=== PATIENT | female | born 1950 | race African-American/Black ===

== ENCOUNTER 2018-09-29 17:07 | Emergency (ER) | payer MEDICARE, OTHER ==
[~2018-09-29] VITALS: Ht 157.5 cm; Wt 63.5 kg
[2018-09-29 17:51] VITALS: BP 159/78
--- NOTE | 2018-09-29 17:52 | NUR ---
ED Nurse Note:pt. came with bilateral feet swelling and ALOC, seen by ER
--- NOTE | 2018-09-29 17:54 | Emergency Room Report ---
History of Present Illness General Chief Complaint: Pain Source: Patient Present Illness HPI Patient presents with 2 problems. One is bilateral foot pain and leg swelling. She has a history of a DVT several years ago. She's not taking blood thinners at this time. She has been able to ambulate. She's been complaining about pain however. She told the RN that she has 1/10 pain, aching. The second problem is altered mentation. She has a long history of schizophrenia. She has been stable on her medications for many years. These have not changed recently. She's been having hallucinations at night and been wandering and has been inappropriate. Sister denies suicidal or homicidal ideation at this time. The urine has a foul odor. There's been no nausea, vomiting, diarrhea. There' s been no head trauma. Patient unable to answer most questions. H/O HTN. Allergies: Coded Allergies: No Known Allergies (Unverified , 09/29/18) Patient History Limited by: medical condition Past Medical History: see triage record Social History: Denies: smoking Social History Narrative cared for by sister Last Menstrual Period: N/A Reviewed Nursing Documentation: PMH: Agreed; PSxH: Agreed Nursing Documentation-PMH Hx Hypertension: Yes History Of Psychiatric Problem: Yes - Schizophrenia, Depression Hx Neurological Problems: Yes Review of Systems All Other Systems: limited Physical Exam Vital Signs Date Time Temp Pulse Resp B/P (MAP) Pulse Ox O2 Delivery O2 Flow Rate FiO2 09/29/18 17:27 97.5 104 18 159/78 96 Room Air Sp02 EP Interpretation: reviewed, normal General Appearance: no apparent distress, Chronically Ill Head: normocephalic Eyes: bilateral eye normal inspection, bilateral eye PERRL, bilateral eye EOMI ENT: moist mucus membranes Neck: supple, no bony tend Respiratory: lungs clear, normal breath sounds Cardiovascular #1: regular rate, rhythm, edema Cardiovascular #2: 2+ radial (R), 2+ dorsalis pedis (R), 2+ dorsalis pedis (L) Gastrointestinal: no mass, scaphoid Genitourinary: no CVA tenderness Musculoskeletal: normal range of motion, no calf tenderness, swelling - ankles , tender - bilateral ankles/feet Neurologic: responsive, motor strength/tone normal, DTRs symmetric, sensory intact, other - poor communication, oriented - X1 - not answer if ER Psychiatric: anxious Skin: other - erythema bilateral ankles Medical Decision Making Diagnostic Impression: Primary Impression: UTI (urinary tract infection) Qualified Codes: N39.0 - Urinary tract infection, site not specified Additional Impressions: Acute exacerbation of chronic schizophrenia Ankle pain Qualified Codes: M25.571 - Pain in right ankle and joints of right foot; M25.572 - Pain in left ankle and joints of left foot ER Course Patient presents with 2 problems. One is a question of leg pain and the second one is altered mentation with worsening of schizophrenia. Differential includes DVT, cellulitis, gout, arthritis amongst others. Regarding altered mentation I differential includes electrolyte imbalance, exacerbation of schizophrenia, occult infection. Evaluation will be with EKG, chest x-ray and labs. In addition noninvasive vascular study will be done to rule out DVT. The patient will be treated with gentle IV hydration and Tylenol. EKG no injury. Prolonged QT. CXR clear. Leukopenia. UA with pyuria. Rocephin ordered. (Tox pending) Patient somewhat improved. Dr. Gruber accepts the patient at [facility]. Laboratory Tests Test 09/29/18 18:15 09/29/18 18:30 09/29/18 18:49 White Blood Count 2.2 K/UL (4.8-10.8) L Red Blood Count 4.81 M/UL (4.20-5.40) Hemoglobin 10.7 G/DL (12.0-16.0) L Hematocrit 33.9 % (37.0-47.0) L Mean Corpuscular Volume 71 FL (80-99) L Mean Corpuscular Hemoglobin 22.3 PG (27.0-31.0) L Mean Corpuscular Hemoglobin Concent 31.6 G/DL (32.0-36.0) L Red Cell Distribution Width 14.2 % (11.6-14.8) Platelet Count 216 K/UL (150-450) Mean Platelet Volume 6.2 FL (6.5-10.1) L Neutrophils (%) (Auto) % (45.0-75.0) Lymphocytes (%) (Auto) % (20.0-45.0) Monocytes (%) (Auto) % (1.0-10.0) Eosinophils (%) (Auto) % (0.0-3.0) Basophils (%) (Auto) % (0.0-2.0) Differential Total Cells Counted 100 Neutrophils % (Manual) 50 % (45-75) Lymphocytes % (Manual) 33 % (20-45) Monocytes % (Manual) 14 % (1-10) H Eosinophils % (Manual) 1 % (0-3) Basophils % (Manual) 0 % (0-2) Band Neutrophils 0 % (0-8) Platelet Estimate Adequate Platelet Morphology Normal Hypochromasia Occasional Anisocytosis 1+ Microcytosis 1+ Erythrocyte Sedimentation Rate 56 MM/HR (0-30) H Sodium Level 139 MMOL/L (136-145) Potassium Level 4.3 MMOL/L (3.5-5.1) Chloride Level 102 MMOL/L (98-107) Carbon Dioxide Level 26 MMOL/L (21-32) Anion Gap 11 mmol/L (5-15) Blood Urea Nitrogen 20 mg/dL (7-18) H Creatinine 0.8 MG/DL (0.55-1.30) Estimate Glomerular Filtration Rate > 60 mL/min (>60) Glucose Level 211 MG/DL (74-106) H Lactic Acid Level 1.50 mmol/L (0.4-2.0) Uric Acid 4.8 MG/DL (2.6-7.2) Calcium Level 9.0 MG/DL (8.5-10.1) Total Bilirubin 0.2 MG/DL (0.2-1.0) Aspartate Amino Transferase (AST) 18 U/L (15-37) Alanine Aminotransferase (ALT) 26 U/L (12-78) Alkaline Phosphatase 149 U/L (46-116) H Total Creatine Kinase 80 U/L (26-308) Troponin I 0.011 ng/mL (0.000-0.056) Total Protein 7.8 G/DL (6.4-8.2) Albumin 3.2 G/DL (3.4-5.0) L Globulin 4.6 g/dL Albumin/Globulin Ratio 0.7 (1.0-2.7) L Salicylates Level 1.4 ug/mL (2.8-20) L Acetaminophen Level < 2 MCG/ML (10-30) L Serum Alcohol < 3 mg/dL Urine Color Dolores Urine Appearance Slightly cloudy Urine pH 5 (4.5-8.0) Urine Specific [place] 1.020 (1.005-1.035) Urine Protein 1+ (NEGATIVE) H Urine Glucose (UA) Negative (NEGATIVE) Urine Ketones Negative (NEGATIVE) Urine Blood 1+ (NEGATIVE) H Urine Nitrite Negative (NEGATIVE) Urine Bilirubin Negative (NEGATIVE) Urine Ictotest Negative (NEGATIVE) Urine Urobilinogen 1 MG/DL (0.0-1.0) H Urine Leukocyte Esterase 1+ (NEGATIVE) H Urine RBC 2-4 /HPF (0 - 2) H Urine WBC 5-10 /HPF (0 - 2) H Urine Squamous Epithelial Cells Moderate /LPF (NONE/OCC) H Urine Amorphous Sediment Moderate /LPF (NONE) H Urine Bacteria Moderate /HPF (NONE) H Urine Opiates Screen Negative (NEGATIVE) Urine Barbiturates Screen Negative (NEGATIVE) Phencyclidine (PCP) Screen Negative (NEGATIVE) Urine Amphetamines Screen Negative (NEGATIVE) Urine Benzodiazepines Screen Negative (NEGATIVE) Urine Cocaine Screen Negative (NEGATIVE) Urine Marijuana (THC) Screen Negative (NEGATIVE) EKG Diagnostic Results Rate: normal Rhythm: NSR ST Segments: no acute changes - Incomplete right bundle-branch block, right ventricular hypertrophy and prolonged QT of 508 ms Rhythm Strip Diag. Results EP Interpretation: yes Rhythm: NSR, no PVC's, no ectopy Chest X-Ray Diagnostic Results Chest X-Ray Diagnostic Results : Chest X-Ray Ordered: Yes # of Views/Limited/Complete: 1 View Indication: Other EP Interpretation: Yes Interpretation: no consolidation, no effusion, no pneumothorax Impression: No acute disease Electronically Signed by: Electronically signed by Kale Davison MD CT/MRI/US Diagnostic Results CT/MRI/US Diagnostic Results : Imaging Test Ordered: duplex Impression no DVT Last Vital Signs Date Time Temp Pulse Resp B/P (MAP) Pulse Ox O2 Delivery O2 Flow Rate FiO2 09/29/18 20:15 97.5 78 19 150/77 99 Room Air Status: improved Disposition: XFER SHT-TRM HOSP Condition: Serious Kale Davison MD Sep 29, 2018 17:54
--- NOTE | 2018-09-29 18:16 | Diagnostic Imaging Report ---
EXAM: XR Chest, 1 View CLINICAL HISTORY: ALOC TECHNIQUE: Frontal view of the chest. COMPARISON: none FINDINGS: Lungs: Unremarkable. No consolidation. Pleural space: Unremarkable. No pneumothorax. Heart: Unremarkable. No cardiomegaly. Mediastinum: Unremarkable. Bones/joints: Unremarkable. IMPRESSION: Normal chest x-ray.
--- NOTE | 2018-09-29 18:35 | NUR ---
called , spoke with Dr Davison. When all labs come back we will call again.
[2018-09-29 18:51] LABS: HEMATOCRIT 33.9 % (37.0-47.0); HEMOGLOBIN 10.7 G/DL (12.0-16.0); MEAN CORPUSCULAR VOLUME 71 FL (80-99); PLATELET COUNT 216 K/UL (150-450); RED BLOOD COUNT 4.81 M/UL (4.20-5.40); RED CELL DISTRIBUTION WIDTH 14.2 % (11.6-14.8); WHITE BLOOD COUNT 2.2 K/UL (4.8-10.8)
[2018-09-29 19:04] VITALS: BP 158/75
--- NOTE | 2018-09-29 19:10 | NUR ---
ED Nurse Note: Patient is resting comfortably, no s/s of acute distress, vital signs stable.
[2018-09-29 19:11] VITALS: BP 158/75
[2018-09-29 19:19] LABS: ANION GAP 11 mmol/L (5-15); BLOOD UREA NITROGEN 20 mg/dL (7-18); CARBON DIOXIDE 26 MMOL/L (21-32); CHLORIDE 102 MMOL/L (98-107); CREATININE 0.8 MG/DL (0.55-1.30); POTASSIUM 4.3 MMOL/L (3.5-5.1); SODIUM 139 MMOL/L (136-145)
--- NOTE | 2018-09-29 19:20 | Diagnostic Imaging Report ---
EXAM: US Duplex Bilateral Lower Extremity Veins CLINICAL HISTORY: DVT TECHNIQUE: Real-time duplex ultrasound scan of the bilateral lower extremity veins integrating B-mode two-dimensional vascular structure, Doppler spectral analysis, color flow Doppler imaging and compression. COMPARISON: None FINDINGS: Right deep veins: Unremarkable. No DVT in the right common femoral, femoral, proximal deep femoral or popliteal veins. The veins demonstrate normal color flow, are normally compressible, with normal phasic flow and/or augmentation response. Right superficial veins: Unremarkable. No thrombus in the visualized right great saphenous vein. Left deep veins: Unremarkable. No DVT in the left common femoral, femoral, proximal deep femoral or popliteal veins. The veins demonstrate normal color flow, are normally compressible, with normal phasic flow and/or augmentation response. Left superficial veins: Unremarkable. No thrombus in the visualized left great saphenous vein. Soft tissues: No acute findings. No popliteal cyst. Other findings: Segmentally visualized calf veins were also interrogated and were unremarkable. IMPRESSION: Negative bilateral lower extremity duplex venous ultrasound examination. No evidence of deep venous thrombosis.
[2018-09-29 19:23] LABS: ALANINE AMINOTRANSFERASE 26 U/L (12-78); ALBUMIN 3.2 G/DL (3.4-5.0); ALBUMIN/GLOBULIN RATIO 0.7 (1.0-2.7); ALKALINE PHOSPHATASE 149 U/L (46-116); ASPARTATE AMINO TRANSFERASE 18 U/L (15-37); BILIRUBIN,TOTAL 0.2 MG/DL (0.2-1.0); CREATINE KINASE 80 U/L (26-308)
[2018-09-29 19:28] LABS: APPEARANCE,URINE SLIGHTLY CLOUDY; BILIRUBIN, URINE NEGATIVE (NEGATIVE); COLOR,URINE AMBER; GLUCOSE, URINE (UA) NEGATIVE (NEGATIVE); KETONES,URINE NEGATIVE (NEGATIVE); LEUKOCYTE ESTERASE ,URINE 1+ (NEGATIVE); NITRITE,URINE NEGATIVE (NEGATIVE); PH,URINE 5 (4.5-8.0); PROTEIN,URINE 1+ (NEGATIVE); UROBILINOGEN,URINE 1 MG/DL (0.0-1.0)
[2018-09-29] MEDS ORDERED: HALDOL5 MG ORAL (19:52)
[2018-09-29] MEDS ORDERED: MICROZIDE12.5 M1 PO (19:52)
[2018-09-29] MEDS ORDERED: ENALAPRIL MALEA25 GM MC (19:52)
[2018-09-29] MEDS ORDERED: PRAVASTATIN SOD40 M1 ORAL (19:52)
[2018-09-29] MEDS ORDERED: TENORMIN100 MG ORAL (19:52)
[2018-09-29] MEDS ORDERED: ASPIR 8181 MG ORAL (19:52)
[2018-09-29] MEDS ORDERED: cefTRIAXone 1 GM in NS 55 ML IVPB ONE (20:00)
[2018-09-29 20:15] VITALS: BP 150/77
--- NOTE | 2018-09-29 20:15 | NUR ---
ED Nurse Note: Patient cleared for transfer to alternate facility. Report called in to Milagros RN and given to BLS simultaneously. Patient caregiver at bedside upon departure.
--- NOTE | 2018-10-01 12:45 | Cardiology Report ---
APPROVED REPORT EKG Measurement Heart [id number] Normal sinus rhythm with sinus arrhythmia Right bundle branch block Right ventricular hypertrophy Prolonged QT Abnormal ECG
== END 2018-09-29 20:15 | disposition short-term general hospital (02) ==
LOC: EMR 18:04
DX: N39.0 Urinary tract infection, site not specified (principal); F20.9 Schizophrenia, unspecified; M25.572 Pain in left ankle and joints of left foot; M25.571 Pain in right ankle and joints of right foot; M79.89 Other specified soft tissue disorders; I10 Essential (primary) hypertension; F32.9 Major depressive disorder, single episode, unspecified
CPT/HCPCS: 36415; 71045; 80053; 80307; 81003; 82550; 83605; 84484; 84550; 85007; 85025; 85651; 87086; 93005; 93970; 96361; 96365; 99285; G0480; J0696; 80329